=== PATIENT | female | born 1985 | race Hispanic/Latino ===

== ENCOUNTER 2018-06-29 09:12 | Outpatient (CLI) | payer BC ==
--- NOTE | 2018-06-29 11:11 | ULT ---
ABDOMINAL ULTRASOUND: Date: 06-29-18 History: Abdominal bloating and pain. FINDINGS: Visualized portions of the pancreas, visualized portions of the IVC, abdominal aorta, liver, gallblad corina, spleen, and bilateral kidneys demonstrate a normal sonographic appearance. Portions of the splee n are obscured due to shadowing from bowel gas. The spleen is otherwise grossly normal in appearance. The right kidney measures 11.2 cm in length and the left kidney 10.9 cm in length. The common duct measures 0.3 cm in diameter which is within normal limits. IMPRESSION: Normal abdominal ultrasound. No gallbladder calculi are seen. The common duct is normal in caliber. POS: [facility]
== END 2018-06-29 09:13 | disposition home or self-care (01) ==
LOC: BICULT 09:12
PROVIDERS: ATTEND Physician Assistant Medical
DX: R14.0 Abdominal distension (gaseous) (principal); R19.8 Other specified symptoms and signs involving the digestive system and abdomen
CPT/HCPCS: 76700